=== PATIENT | female | born 2000 | race Two or more races ===

== ENCOUNTER 2023-04-26 17:31 | Inpatient (IN) | payer MEDICAID ==
[~2023-04-26] VITALS: Ht 160 cm; Wt 62.6 kg
[~2023-04-26 17:31] MED LIST: PREN-96 PO
[2023-04-26] MEDS ORDERED: DERMOPLAST 60ML BOTTLE TOP PRN (20:00)
[2023-04-26] MEDS ORDERED: WITCH HAZEL-GLYCERIN PAD TOP PRN (20:00)
[2023-04-26] MEDS ORDERED: BUTORPHANOL TARTRATE 2 MG/1 ML VIAL IV PRN ×2 (20:00)
[2023-04-26] MEDS ORDERED: LIDOCAINE 2%HCL (LOCAL ANESTH.) INJ 20ML MDV IJ PRN (20:00)
[2023-04-26] MEDS ORDERED: PROMETHAZINE HCL 25 MG/ML 1ML IV PRN (20:00)
[2023-04-26] MEDS ORDERED: PHISODERM TOP SOLN 240ML BTL TOP PRN (20:00)
[2023-04-26] MEDS ORDERED: LACT. RINGERS/OXYTOCIN 20UNITS 500 ML IV ONE ×2 (20:00→20:30)
[2023-04-26 21:01] LABS: Urine Epithelial Cast None Seen /hpf (<5)
[2023-04-26 21:09] LABS: Basophils # (auto) 0 10 ^3/uL (0-0.2); Basophils % (auto) 0.1 % (0.0-2.0); Eosinophils # (auto) 0 10 ^3/uL (0-0.8); Eosinophils % (auto) 0.3 % (0.0-7.0); Hematocrit 39.1 % (36.0-46.0); Hemoglobin 13.3 g/dL (12.2-16.2); Lymphocytes # (auto) 1.2 10 ^3/uL (0.4-5.4); Lymphocytes % (auto) 12.3 % (10.0-50.0); Mean Corpuscular Hemoglobin 31.1 pg (28.0-32.0); Mean Corpuscular Hgb Conc. 33.9 g/dL (32.0-36.0); Mean Corpuscular Volume 91.8 fL (80.0-100.0); Monocytes # (auto) 0.9 10 ^3/uL (0-1.3); Monocytes % (auto) 8.6 % (0.0-12.0); Neutrophils % (auto) 78.7 % (37.0-80.0); Nucleated Red Blood Cells % 0.1 %; Red Blood Cells 4.26 10^6/uL (4.0-5.20); Red Cell Distribution Width 13.2 % (11.8-14.3); White Blood Cell 10.1 10^3/uL (4.4-10.8)
[2023-04-26 21:15] LABS: Urine Bacteria NONE SEEN /hpf (None Seen); Urine Blood 1+ /uL (Negative); Urine Clarity HAZY (Clear); Urine Color Yellow (Yellow); Urine Mucus FEW (None Seen); Urine Protein, UAD TRACE (Negative); Urine Specific Gravity 1.018 (1.001-1.035); Urine Urobilinogen Normal (Negative); Urine WBC 60 /hpf (0 - 5); Urine pH 5.5 (5.0-8.0)
[2023-04-26 21:19] LABS: Amphetamine Screen, Urine Neg (NEGATIVE); Barbiturate Scree,Urine Neg (NEGATIVE); Benzodiazephine Screen, Urine Neg (NEGATIVE); Cocaine Screen, Urine Neg (NEGATIVE); Opiate Scree,Urine Neg (NEGATIVE); Phencyclidine Screen, Urine Neg (NEGATIVE)
[2023-04-26 21:20] LABS: Cannabinoid Screen, Urine Neg (NEGATIVE)
[2023-04-26 21:23] LABS: Alanine Aminotransferase 25 U/L (7-40); Albumin 3.9 g/dL (3.2-4.8); Alkaline Phosphatase 214 U/L (46-116); Anion Gap 9 (5-15); Aspartate Aminotransferase 24 U/L (13-40); BUN/Creatinine Ratio 10.9 (10.0-20.0); Bilirubin, Total 0.5 mg/dL (0.2-1.0); Blood Urea Nitrogen 5 mg/dL (9-23); Calcium 9.1 mg/dL (8.5-10.1); Carbon Dioxide 21 mmol/L (20-30); Chloride 108 mmol/L (98-107); Glucose 84 mg/dL (74-106); Potassium 3.6 mmol/L (3.5-5.1); Sodium 138 mmol/L (136-145); Total Protein 6.7 g/dL (5.7-8.2)
[2023-04-26 21:35] LABS: INR 0.95 (0.9-1.15); Partial Thromboplastin Time 26.7 SEC (24.5-34.5)
[2023-04-26] MEDS: LACTATED RINGER'S 1,000 ML IV SCH (22:12)
[2023-04-27] MEDS: LACTATED RINGER'S 1,000 ML IV SCH (03:54)
[2023-04-27] MEDS ORDERED: IBUPROFEN 600 MG TAB PO PRN (09:00)
[2023-04-27] MEDS ORDERED: ONDANSETRON ODT 4 MG TAB PO PRN (09:00)
[2023-04-27] MEDS ORDERED: ACETAMINOPHEN 325 MG TAB PO PRN (09:00)
[2023-04-27] MEDS ORDERED: METHYLERGONOVINE MALEATE 0.2 MG/ML AMP IM PRN (10:15)
[2023-04-27] MEDS ORDERED: LIDOCAINE 2%HCL (LOCAL ANESTH.) INJ 20ML MDV IJ PRN (10:15)
[2023-04-27 13:00] VITALS: RESP 16; O2SAT 98
[2023-04-27 15:00] VITALS: BP 105/66; PULSE 105; RESP 20; TEMP 99.2; O2SAT 98
[2023-04-27 19:00] VITALS: BP 116/68; PULSE 79; RESP 16; RESP 17; TEMP 98.3; O2SAT 98
[2023-04-27 23:00] VITALS: BP 112/72; PULSE 84; RESP 16; TEMP 98.6; O2SAT 98
[2023-04-28 03:00] VITALS: BP 108/70; PULSE 81; RESP 16; TEMP 98.4; O2SAT 97
[2023-04-28 07:00] VITALS: BP 108/68; PULSE 76; RESP 16; TEMP 98; O2SAT 97
[2023-04-30 19:06] LABS: Treponema pallidum Ab (FTA-Ab) Non Reactive (Non Reactive)
[2023-05-01 11:06] LABS: RPR Non Reactive (Non Reactive)
== END 2023-04-28 10:48 | disposition home or self-care (01) | DRG 560 ==
LOC: LDRP 17:31 → OBSVTOIN 19:54 → LDRP 22:44
PROVIDERS: ADMIT Obstetrics & Gynecology; ATTEND Obstetrics & Gynecology
PROC: 10E0XZZ Delivery of Products of Conception, External Approach (ICD-10-PCS; principal; 2023-04-27)
PROC: 10907ZC Drainage of Amniotic Fluid, Therapeutic from Products of Conception, Via Natural or Artificial Opening (ICD-10-PCS; 2023-04-27)
DX: O69.81X0 Labor and delivery complicated by cord around neck, without compression, not applicable or unspecified (principal); Z37.0 Single live birth; O71.82 Other specified trauma to perineum and vulva; Z3A.39 39 weeks gestation of pregnancy; O77.0 Labor and delivery complicated by meconium in amniotic fluid
CPT/HCPCS: 36415; 59025; 59409; 80053; 80307; 81001; 81002; 85025; 85610; 85730; 86592; 86850; 86900; 86901; 94760; 94762; 96360; 96361; G0378; J2590

== ENCOUNTER → 2024-05-04 | Outpatient (CLI) | payer MEDICAID ==
[2024-05-04 13:23] LABS: Alanine Aminotransferase 29 U/L (7-40); Alkaline Phosphatase 82 U/L (46-116); Anion Gap 9 (5-15); Aspartate Aminotransferase 17 U/L (13-40); BUN/Creatinine Ratio 16.1 (10.0-20.0); Bilirubin, Total 0.5 mg/dL (0.2-1.0); Calcium 9.9 mg/dL (8.7-10.4); Carbon Dioxide 25 mmol/L (20-31); Chloride 102 mmol/L (98-107); Glucose 88 mg/dL (74-106); Potassium 3.5 mmol/L (3.5-5.1)
[2024-05-04 13:24] LABS: Albumin 4.9 g/dL (3.2-4.8); Blood Urea Nitrogen 9 mg/dL (9-23); Sodium 136 mmol/L (136-145); Total Protein 7.9 g/dL (5.7-8.2)
[2024-05-05 06:06] LABS: Varicella Zoster IgG Antibody Reactive (Non Reactive)
[2024-05-05 07:06] LABS: RPR Non Reactive (Non Reactive)
[2024-05-05 22:06] LABS: Chlamydia Trachomatis, NAA Negative (Negative); Neisseria gonorrhoeae, NAA Negative (Negative)
[2024-05-07 05:07] LABS: QuantiFERON-TB Gold Plus Negative (Negative)
== END | disposition home or self-care (01) ==
LOC: LAB 12:02
DX: O23.43 Unspecified infection of urinary tract in pregnancy, third trimester (principal); N39.0 Urinary tract infection, site not specified; Z31.430 Encounter of female for testing for genetic disease carrier status for procreative management; Z3A.00 Weeks of gestation of pregnancy not specified; Z3A.39 39 weeks gestation of pregnancy
CPT/HCPCS: 36415; 80053; 83036; 84439; 84443; 86592; 86703; 86787; 86850; 86900; 86901; 87086; 87389; 87902

== ENCOUNTER → 2024-07-17 | Outpatient (CLI) | payer MEDICAID ==
[2024-07-17 12:15] LABS: Basophils # (auto) 0 10 ^3/uL (0-0.2); Basophils % (auto) 0.2 % (0.0-2.0); Eosinophils # (auto) 0.1 10 ^3/uL (0-0.8); Hematocrit 35.8 % (36.0-46.0); Hemoglobin 12.3 g/dL (12.2-16.2); Lymphocytes # (auto) 1.1 10 ^3/uL (0.4-5.4); Lymphocytes % (auto) 18.2 % (10.0-50.0); Mean Corpuscular Hemoglobin 31.5 pg (28.0-32.0); Mean Corpuscular Hgb Conc. 34.4 g/dL (32.0-36.0); Mean Corpuscular Volume 91.7 fL (80.0-100.0); Monocytes # (auto) 0.6 10 ^3/uL (0-1.3); Monocytes % (auto) 9.9 % (0.0-12.0); Neutrophils # (auto) 4.2 10 ^3/uL (1.6-8.6); Neutrophils % (auto) 70.7 % (37.0-80.0); Nucleated Red Blood Cells % 0.1 %; Platelet Count (auto) 227 10^3/uL (140-450); Red Cell Distribution Width 13.4 % (11.8-14.3); White Blood Cell 5.9 10^3/uL (4.4-10.8)
== END | disposition home or self-care (01) ==
LOC: LAB 11:58
DX: Z34.80 Encounter for supervision of other normal pregnancy, unspecified trimester (principal); Z3A.00 Weeks of gestation of pregnancy not specified
CPT/HCPCS: 36415; 84443; 85025; 86765

== ENCOUNTER 2024-09-29 14:09 | Observation (INO) | payer MEDICAID ==
[~2024-09-29] VITALS: Ht 160 cm; Wt 67.6 kg
--- NOTE | 2024-09-29 15:50 | DVH ---
BIOPHYSICAL PROFILE HISTORY: GDMA2, IUGR Comparison Study: None TECHNIQUE: Multiple real-time grayscale sonographic images through the gravid uterus of the fetus wi th duplex Doppler color flow and M-mode spectral analysis FINDINGS: BIOPHYSICAL PROFILE: breathing score: 2 movement score: 2 tone score: 2 Quantitative DEBBI score: 2 (DEBBI: 10.8 Cm.) Total score: 8 The cervix is not visualized Single live fetus in cephalic presentation. heart rate 128 beats per minute. Posterior, grade 2 placenta without previa or abruption IMPRESSION: Biophysical profile score: 8
[2024-09-29] MEDS ORDERED: METF-370 PO (16:23)
--- NOTE | 2024-09-29 16:36 | DVHDS2 ---
Physician Discharge Progress N Final Diagnosis: testing for GDM, A2 and IUGR Operations or Procedures: Operations or Procedures 24yo IUP@32.0wks VSS NST reactive FKC/PTL precautions reviewed Dr. Mark consulted, agrees with POC. Other Interventions Other Interventions [address] [address] Ph: [phone] DIAGNOSTIC IMAGING Diagnostic Imaging Report : [id number] Signed PATIENT: BABAK OVALLE ACCT: [id number] UNIT: [id number] : 2000 LOC: LD ROOM / BED: LD1 / A AGE / SEX: 24 / F ADM STATUS: ADM IN SERVICE 1420 ORDERING PHYSICIAN: PRASANNA GARG CNM PROCEDURE(s): BPP - BIOPHYSICAL PROFILE REASON: GDMA2, IUGR ORDER NUMBER(s): [id number], ACCESSION NUMBER(s): [id number] BIOPHYSICAL PROFILE HISTORY: GDMA2, IUGR Comparison Study: None TECHNIQUE: Multiple real-time grayscale sonographic images through the gravid uterus of the fetus with duplex Doppler color flow and M-mode spectral analysis FINDINGS: BIOPHYSICAL PROFILE: breathing score: 2 movement score: 2 tone score: 2 Quantitative DEBBI score: 2 (DEBBI: 10.8 Cm.) Total score: 8 The cervix is not visualized Single live fetus in cephalic presentation. heart rate 128 beats per minute. Posterior, grade 2 placenta without previa or abruption IMPRESSION: Biophysical profile score: 8 ATED BY: TEX FAUST MD DICTATED DATE/TIME: 09/29/24 1548 SIGNED BY: TEX FAUST MD SIGNED DATE/TIME: 09/29/24 1548 CC: Condition on Discharge: Stable Disposition: Home Discharge Instructions: Diet: Consistent carbohydrate Activity: No Restrictions, As Tolerated Follow Up/Referral: follow up twice weekly Medications: see med list Follow Up Care: Specialist: f/u twice weekly Discharge Statement: "Patient was advised to return to the ER or call 911 if any headaches, dizziness, shortness of breath, chest pain, abdominal pain, bleeding, fevers, or worsening of medical condition. Patient was counseled about treatment plan, medications, possible side effects, patientverbalized understanding. All questions were answered to the best of my ability. This discharge took greater then 30 minutes in planning, reviewing documentation, counseling the patient, and discussing with other team members." Visit Coding OBGYN Date of Service: Sep 29, 2024 Billing Provider: PRASANNA GARG CNM MARKETING RESEARCH INTERN Common Visit Codes: [id number] OBS CARE (HIGH) MARKETING RESEARCH INTERN Procedure Codes: 22800-82- NON-STRESS TEST PRSAANNA GARG CNM Sep 29, 2024 16:36
== END 2024-09-29 16:42 | disposition home or self-care (01) ==
LOC: LDRP 14:09
PROVIDERS: ADMIT Obstetrics & Gynecology; ATTEND Obstetrics & Gynecology
DX: O36.5930 Maternal care for other known or suspected poor fetal growth, third trimester, not applicable or unspecified (principal); O24.419 Gestational diabetes mellitus in pregnancy, unspecified control; Z3A.32 32 weeks gestation of pregnancy; Z98.890 Other specified postprocedural states; Z79.899 Other long term (current) drug therapy
CPT/HCPCS: 59025; 76819; 81002; 82948; 82962; 94760; G0378

== ENCOUNTER 2024-10-04 10:12 | Observation (INO) | payer MEDICAID ==
[~2024-10-04 10:12] MED LIST changes: +METF-370 PO
--- NOTE | 2024-10-04 10:54 | DVH ---
BIOPHYSICAL PROFILE HISTORY: GDMA2/IUGR TECHNIQUE: Multiple transabdominal real-time grayscale sonographic images through the gravid uterus of the fetus with duplex Doppler color flow and M-mode spectral analysis FINDINGS: BIOPHYSICAL PROFILE: breathing score: 2/2 movement score: 2/2 tone score: 2/2 Quantitative DEBBI score: 2/2 (DEBBI: 12.3 Cm.) Total score: 8/8 The cervix closed Single live fetus in cephalic presentation. heart rate 132 beats per minute. Grade 1 posterior placenta without previa or abruption IMPRESSION: 1. Biophysical profile score: 8/8 unchanged from previous exam done 09/29/2024
--- NOTE | 2024-10-04 21:36 | DVHDS2 ---
Physician Discharge Progress N Final Diagnosis: 32wks iugr,gdm Operations or Procedures: Operations or Procedures nst raective reviwed,sono Condition on Discharge: Good Disposition: Home Discharge Instructions: Diet: Consistent carbohydrate Activity: No Restrictions, As Tolerated Follow Up/Referral: as scheduled. Medications: na Follow Up Care: Specialist: 3d Discharge Statement: "Patient was advised to return to the ER or call 911 if any headaches, dizziness, shortness of breath, chest pain, abdominal pain, bleeding, fevers, or worsening of medical condition. Patient was counseled about treatment plan, medications, possible side effects, patientverbalized understanding. All questions were answered to the best of my ability. This discharge took greater then 30 minutes in planning, reviewing documentation, counseling the patient, and discussing with other team members." Visit Coding OBGYN Date of Service: Oct 03, 2024 Billing Provider: BRAYDEN GOMEZ DO PHARMACEUTICAL SALES Common Visit Codes: [id number] INP/OBS CARE (HIGH) PHARMACEUTICAL SALES Procedure Codes: 60611-35- NON-STRESS TEST BRAYDEN GOMEZ DO Oct 04, 2024 21:35
== END 2024-10-04 11:10 | disposition home or self-care (01) ==
LOC: LDRP 10:12
PROVIDERS: ADMIT Obstetrics & Gynecology; ATTEND Obstetrics & Gynecology
DX: O24.419 Gestational diabetes mellitus in pregnancy, unspecified control (principal); O36.5930 Maternal care for other known or suspected poor fetal growth, third trimester, not applicable or unspecified; Z98.890 Other specified postprocedural states; Z79.899 Other long term (current) drug therapy; Z3A.32 32 weeks gestation of pregnancy
CPT/HCPCS: 59025; 76819; 81002; 82948; 82962; 94760; G0378

== ENCOUNTER 2024-10-06 17:11 | Observation (INO) | payer MEDICAID ==
[2024-10-06] MEDS ORDERED: METF-370 PO (17:54)
--- NOTE | 2024-10-06 18:18 | DVH ---
BIOPHYSICAL PROFILE HISTORY: GDMA2, IUGR TECHNIQUE: Multiple real-time grayscale sonographic images through the gravid uterus of the fetus wi th duplex Doppler color flow. FINDINGS: BIOPHYSICAL PROFILE: breathing score: 2 movement score: 2 tone score: 2 Quantitative DEBBI score: 2 Total score: 8 out of 8 Live intrauterine with heart rate of 151 beats per minute. presentation is cep halic. Placenta posteriorly positioned. DEBBI 11.4 cm. IMPRESSION: Biophysical profile score: 8 out of 8
--- NOTE | 2024-10-06 22:57 | DVHDS2 ---
Physician Discharge Progress N Final Diagnosis: testing for GDM, A2 and IUGR Operations or Procedures: Operations or Procedures 24yo IUP@33.2wks VSS NST reactive FKC/PTL precautions reviewed Other Interventions Other Interventions [address] [address] Ph: [phone] DIAGNOSTIC IMAGING Diagnostic Imaging Report : [id number] Signed PATIENT: BABAK OVALLE ACCT: [id number] UNIT: [id number] : 2000 LOC: [facility] ROOM / BED: TRIAGE3 / A AGE / SEX: 24 / F ADM STATUS: ADM IN SERVICE 2277 ORDERING PHYSICIAN: PRASANNA GARG CNM PROCEDURE(s): BPP - BIOPHYSICAL PROFILE REASON: GDMA2, IUGR ORDER NUMBER(s): [id number], ACCESSION NUMBER(s): [id number] BIOPHYSICAL PROFILE HISTORY: GDMA2, IUGR TECHNIQUE: Multiple real-time grayscale sonographic images through the gravid uterus of the fetus with duplex Doppler color flow. FINDINGS: BIOPHYSICAL PROFILE: breathing score: 2 movement score: 2 tone score: 2 Quantitative DEBBI score: 2 Total score: 8 out of 8 Live intrauterine with heart rate of 151 beats per minute. presentation is cephalic. Placenta posteriorly positioned. DEBBI 11.4 cm. IMPRESSION: Biophysical profile score: 8 out of 8 ATED BY: ESTUARDO SINGH MD DICTATED DATE/TIME: 10/06/241815 SIGNED BY: ESTUARDO SINGH MD SIGNED DATE/TIME: 10/06/241815 CC: Condition on Discharge: Stable Disposition: Home Discharge Instructions: Diet: Regular Activity: No Restrictions, As Tolerated Follow Up/Referral: Please keep all scheduled OBGYN appointments Medications: Continue taking all prescribed medications as directed Follow Up Care: Specialist: f/u in 3 days Discharge Statement: "Patient was advised to return to the ER or call 911 if any headaches, dizziness, shortness of breath, chest pain, abdominal pain, bleeding, fevers, or worsening of medical condition. Patient was counseled about treatment plan, medications, possible side effects, patientverbalized understanding. All questions were answered to the best of my ability. This discharge took greater then 30 minutes in planning, reviewing documentation, counseling the patient, and discussing with other team members." Visit Coding OBGYN Date of Service: Oct 06, 2024 Billing Provider: PRASANNA GARG CNM PERSONAL VEHICLE ADVISOR Common Visit Codes: [id number] OBS CARE (HIGH) PERSONAL VEHICLE ADVISOR Procedure Codes: 02863-72- NON-STRESS TEST PRASANNA GARG CNM Oct 06, 2024 22:57
== END 2024-10-06 18:33 | disposition home or self-care (01) ==
LOC: LDRP 17:11
PROVIDERS: ADMIT Obstetrics & Gynecology; ATTEND Obstetrics & Gynecology
DX: O36.5930 Maternal care for other known or suspected poor fetal growth, third trimester, not applicable or unspecified (principal); O24.419 Gestational diabetes mellitus in pregnancy, unspecified control; Z98.890 Other specified postprocedural states; Z79.899 Other long term (current) drug therapy; Z3A.33 33 weeks gestation of pregnancy
CPT/HCPCS: 59025; 76819; 81002; 82962; 94760; G0378

== ENCOUNTER 2024-10-09 06:33 | Observation (INO) | payer MEDICAID ==
--- NOTE | 2024-10-09 09:54 | DVH ---
BIOPHYSICAL PROFILE HISTORY: GDMA2/IUGR Comparison Study: US BIOPHYSICAL PROFILE on DOS: 10/06/24, US BIOPHYSICAL PROFILE on DOS: 10/04/24, US B IOPHYSICAL PROFILE on DOS: 09/29/24 TECHNIQUE: Multiple real-time grayscale sonographic images through the gravid uterus of the fetus wi th duplex Doppler color flow and M-mode spectral analysis FINDINGS: BIOPHYSICAL PROFILE: breathing score: 2 movement score: 2 tone score: 2 Quantitative DEBBI score: 2 (DEBBI: 13.5 Cm.) Total score: 8 The cervix is not visualized Single live fetus in cephalic presentation. heart rate 136 beats per minute. Grade 1, posterior placenta without previa or abruption IMPRESSION: Biophysical profile score: 8
--- NOTE | 2024-10-09 14:57 | DVHDS2 ---
Physician Discharge Progress N Final Diagnosis: IUGR 33WKS Operations or Procedures: Operations or Procedures NST REACTIVE REVIWED,SONO Condition on Discharge: Good Disposition: Home Discharge Instructions: Diet: Consistent carbohydrate Activity: Light activity Medications: NA Follow Up Care: Specialist: 3D Discharge Statement: "Patient was advised to return to the ER or call 911 if any headaches, dizziness, shortness of breath, chest pain, abdominal pain, bleeding, fevers, or worsening of medical condition. Patient was counseled about treatment plan, medications, possible side effects, patientverbalized understanding. All questions were answered to the best of my ability. This discharge took greater then 30 minutes in planning, reviewing document ation, counseling the patient, and discussing with other team members." Visit Coding OBGYN Date of Service: Oct 09, 2024 Billing Provider: BRAYDEN GOMEZ DO BOSS DYER Common Visit Codes: [id number]-[id number] OBS CARE (HIGH) BOSS DYER Procedure Codes: 35876-55- NON-STRESS TEST BRAYDEN GOMEZ DO Oct 09, 2024 14:57
== END 2024-10-09 10:10 | disposition home or self-care (01) ==
LOC: LDRP 09:13
PROVIDERS: ADMIT Obstetrics & Gynecology; ATTEND Obstetrics & Gynecology
DX: O36.5930 Maternal care for other known or suspected poor fetal growth, third trimester, not applicable or unspecified (principal); Z3A.33 33 weeks gestation of pregnancy; Z79.899 Other long term (current) drug therapy; Z98.890 Other specified postprocedural states
CPT/HCPCS: 59025; 76819; 81002; 82948; 82962; 94760; G0378

== ENCOUNTER 2024-10-13 06:46 | Observation (INO) | payer MEDICAID ==
[~2024-10-13] VITALS: Ht 160 cm; Wt 68.0 kg
--- NOTE | 2024-10-13 20:21 | DVH ---
BIOPHYSICAL PROFILE HISTORY: GDMA2 and IUGR TECHNIQUE: Multiple transabdominal real-time grayscale sonographic images through the gravid uterus of the fetus with duplex Doppler color flow and M-mode spectral analysis FINDINGS: BIOPHYSICAL PROFILE: breathing score: 2 movement score: 2 tone score: 2 Quantitative DEBBI score: 2 (DEBBI: 11.7 Cm.) Total score: 8 The cervix is not well-visualized Single live fetus in cephalic presentation. heart rate 161 beats per minute. Posterior placenta without previa or abruption IMPRESSION: Biophysical profile score: 8
--- NOTE | 2024-10-13 22:36 | DVHDS2 ---
Physician Discharge Progress N Final Diagnosis: testing for IUGR and GDM, A2 Operations or Procedures: Operations or Procedures 24yo IUP@34.0wks VSS NST reactive FKC/PTL precautions reviewed Dr. Mark consulted, agrees with POC. Other Interventions Other Interventions [facility] [id number] [place] [id number] Ph: [phone] DIAGNOSTIC IMAGING Diagnostic Imaging Report : [id number] Signed PATIENT: BABAK OVALLE ACCT: [id number] UNIT: [id number] : 2000 LOC: [facility] ROOM / BED: TRIAGE1 / A AGE / SEX: 24 / F ADM STATUS: ADM IN SERVICE 24 ORDERING PHYSICIAN: PRASANNA GARG CNM PROCEDURE(s): BPP - BIOPHYSICAL PROFILE REASON: GDMA2 and IUGR ORDER NUMBER(s): [id number], ACCESSION NUMBER(s): [id number] BIOPHYSICAL PROFILE HISTORY: GDMA2 and IUGR TECHNIQUE: Multiple transabdominal real-time grayscale sonographic images through the gravid uterus of the fetus with duplex Doppler color flow and M-mode spectral analysis FINDINGS: BIOPHYSICAL PROFILE: breathing score: 2 movement score: 2 tone score: 2 Quantitative DEBBI score: 2 (DEBBI: 11.7 Cm.) Total score: 8 The cervix is not well-visualized Single live fetus in cephalic presentation. heart rate 161 beats per minute. Posterior placenta without previa or abruption IMPRESSION: Biophysical profile score: 8 ATED BY: YENIFER BERRIOS DO DICTATED DATE/TIME: 10/13/242017 SIGNED BY: YENIFER BERRIOS DO SIGNED DATE/TIME: 10/13/242017 CC: Condition on Discharge: Stable Disposition: Home Discharge Instructions: Diet: Consistent carbohydrate Activity: No Restrictions, As Tolerated Follow Up/Referral: [facility] have an [facility] on 10[facility]16/24 at [facility] Medications: Continue taking all prescribed medications as directed Follow Up Care: Specialist: f/u in 3 days Discharge Statement: "Patient was advised to return to the ER or call 911 if any headaches, dizziness, shortness of breath, chest pain, abdominal pain, bleeding, fevers, or worsening of medical condition. Patient was counseled about treatment plan, medications, possible side effects, patientverbalized understanding. All questions were answered to the best of my ability. This discharge took greater then 30 minutes in planning, reviewing documentation, counseling the patient, and discussing with other team members." Visit Coding OBGYN Date of Service: Oct 14, 2024 Billing Provider: PRASANNA GARG CNM NANOSYSTEMS ENGINEER Common Visit Codes: [id number] OBS CARE (HIGH) NANOSYSTEMS ENGINEER Procedure Codes: 68510-02- NON-STRESS TEST PRASANNA GARG CNM Oct 13, 2024 22:36
== END 2024-10-13 20:18 | disposition home or self-care (01) ==
LOC: LDRP 19:07
PROVIDERS: ADMIT Obstetrics & Gynecology; ATTEND Obstetrics & Gynecology
DX: O36.5930 Maternal care for other known or suspected poor fetal growth, third trimester, not applicable or unspecified (principal); O24.419 Gestational diabetes mellitus in pregnancy, unspecified control; Z3A.34 34 weeks gestation of pregnancy; Z79.899 Other long term (current) drug therapy; Z98.890 Other specified postprocedural states
CPT/HCPCS: 59025; 76819; 81002; 82948; 82962; 94760; G0378

== ENCOUNTER 2024-10-16 03:10 | Observation (INO) | payer MEDICAID ==
--- NOTE | 2024-10-16 20:08 | DVHDS2 ---
Physician Discharge Progress N Final Diagnosis: NST/BPP for GDM and IUGR. Operations or Procedures: Operations or Procedures HPI: 24yo IUP@34w3d presents for testing for GDM on metformin and IUGR. Denies LOF/VB/RAINES/vision changes/RUQ pain. Endorses +FM. Denies UCs, leaking fluid, or vaginal bleeding PNC: Routine PNC at [facility], adequate visits OB hx: x1 O: VS: BP: 111/64/ HR:65/SpO2: 96%/T:98.1 Blood glucose: 95 FHR tracing/NST: reactive. Baseline: 130 Variability: Moderate Accelerations: Present Decelerations: None Category: 1 UCs: None noted BPP: 11/13 A: 24yo IUP@34w3d testing Gestational Diabetes IUGR Category I EFM P: -Discharge home -Continue medication routine and diet for GDM. -Discussed labor precautions and kick counts. Patient verbalizes understanding -Follow-up on Friday 10/20 for repeat NST AI HECTOR CNM 10/16/24 @ 2004 Other Interventions Other Interventions BPP: 11/13 DEBBI: 11.8 Placenta: Posterior, no evidence of previa or abruption Condition on Discharge: Stable Disposition: Home Discharge Instructions: Diet: Consistent carbohydrate Diet comment: GDM diet Activity: No Restrictions, As Tolerated Follow Up/Referral: 10/20 at 1300 Medications: No change Follow Up Care: Specialist: f/u in 4 days for biweekly testing Discharge Statement: Patient was advised to return to the ER or call 911 if any headaches, dizziness, shortness of breath, chest pain, abdominal pain, bleeding, fevers, or worsening of medical condition. Patient was counseled about treatment plan, medications, possible side effects, patientverbalized understanding. All questions were answered to the best of my ability. This discharge took greater then 30 minutes in planning, reviewing documentation, counseling the patient, and discussing with other team members. Visit Coding OBGYN Date of Service: Oct 16, 2024 Billing Provider: AI HECTOR CNM MILLING MACHINE OPERATOR GEAR Common Visit Codes: 90497-[id number] OBS CARE (MOD) MILLING MACHINE OPERATOR GEAR Procedure Codes: 79869-80- NON-STRESS TEST AI HECTOR CNM Oct 16, 2024 20:08
--- NOTE | 2024-10-19 16:47 | DVH ---
BIOPHYSICAL PROFILE HISTORY: GDMA1 AND IUGR TECHNIQUE: Multiple real-time grayscale sonographic images through the gravid uterus of the fetus wi th duplex Doppler color flow. FINDINGS: BIOPHYSICAL PROFILE: breathing score: 2 movement score: 2 tone score: 2 Quantitative DEBBI score: 2 Total score: 8 out of 8 Single live intrauterine , cephalic lie. heart rate of 157 beats per minute. Placenta posterior, fundal position. DEBBI 11.8 cm. IMPRESSION: Biophysical profile score: 8 out of 8
== END 2024-10-16 20:03 | disposition home or self-care (01) ==
LOC: LDRP 18:20
PROVIDERS: ADMIT Obstetrics & Gynecology; ATTEND Obstetrics & Gynecology
DX: O36.5930 Maternal care for other known or suspected poor fetal growth, third trimester, not applicable or unspecified (principal); O24.419 Gestational diabetes mellitus in pregnancy, unspecified control; Z3A.34 34 weeks gestation of pregnancy; Z79.899 Other long term (current) drug therapy; Z98.890 Other specified postprocedural states
CPT/HCPCS: 59025; 76819; 81002; 82948; 82962; 94760; G0378

== ENCOUNTER 2024-10-20 13:28 | Observation (INO) | payer MEDICAID ==
--- NOTE | 2024-10-20 14:44 | DVH ---
BIOPHYSICAL PROFILE HISTORY: gdma2/iugr TECHNIQUE: Multiple transabdominal real-time grayscale sonographic images through the gravid uterus of the fetus with duplex Doppler color flow and M-mode spectral analysis FINDINGS: BIOPHYSICAL PROFILE: breathing score: 2 movement score: 2 tone score: 2 Quantitative DEBBI score: 2 (DEBBI: 8-9 Cm.) Total score: 8/8 The cervix measures Single live fetus in 35 weeks 0 days presentation. heart rate 132 beats per minute. Posterior fundal Grade 2 placenta without previa or abruption Single live fetus at 5 weeks 0 Biophysical profile score 8 8 corresponding to an PEYTON of 11/24/2024 IMPRESSION: 1. Biophysical profile score: /8
--- NOTE | 2024-10-20 20:19 | DVHDS2 ---
Physician Discharge Progress N Final Diagnosis: testing for GDM, A2 and IUGR Operations or Procedures: Operations or Procedures 24yo IUP@35+wks, +FM, denies UCs/VB VSS NST reactive BPP 11/13 FKC/PTL precautions reviewed Dr. Mark consulted, agrees with POC. Condition on Discharge: Stable Disposition: Home Discharge Instructions: Diet: Consistent carbohydrate Activity: No Restrictions, As Tolerated Medications: see med list Follow Up Care: Specialist: f/u in 3 days Discharge Statement: "Patient was advised to return to the ER or call 911 if any headaches, dizziness, shortness of breath, chest pain, abdominal pain, bleeding, fevers, or worsening of medical condition. Patient was counseled about treatment plan, medications, possible side effects, patientverbalized understanding. All questions were answered to the best of my ability. This discharge took greater then 30 minutes in planning, reviewing documentation, counseling the patient, and discussing with other team members." Visit Coding OBGYN Date of Service: Oct 20, 2024 Billing Provider: PRASANNA GARG CNM FIVE ROLL REFINER BATCH MIXER Common Visit Codes: [id number] OBS CARE (HIGH) FIVE ROLL REFINER BATCH MIXER Procedure Codes: 25295-83- NON-STRESS TEST PRASANNA GARG CNM Oct 20, 2024 20:19
== END 2024-10-20 15:32 | disposition home or self-care (01) ==
LOC: LDRP 13:28
PROVIDERS: ADMIT Obstetrics & Gynecology; ATTEND Obstetrics & Gynecology
DX: O24.419 Gestational diabetes mellitus in pregnancy, unspecified control (principal); O36.5930 Maternal care for other known or suspected poor fetal growth, third trimester, not applicable or unspecified; Z3A.35 35 weeks gestation of pregnancy; Z98.890 Other specified postprocedural states; Z79.899 Other long term (current) drug therapy
CPT/HCPCS: 59025; 76819; 81002; 82948; 82962; 94760; G0378

== ENCOUNTER 2024-10-23 06:39 | Observation (INO) | payer MEDICAID ==
[~2024-10-23] VITALS: Ht 160 cm; Wt 67.1 kg
--- NOTE | 2024-10-23 19:45 | DVH ---
ULTRASOUND BIOPHYSICAL PROFILE CLINICAL HISTORY: GDMA2 and IUGR COMPARISON: US BIOPHYSICAL PROFILE on DOS: 10/20/24 TECHNIQUE: Real-time grayscale, color flow and M-mode imaging of the gravid uterus is performed. FINDINGS: Single living intrauterine gestation. Cephalic presentation. heart rate 135 beats per minute. Placenta is fundal. No definite evidence of abruption or previa. Amniotic fluid index: 9.6 cm Biophysical profile: 8 out of 8. (2 breathing, 2 activity, 2 tone, 2 DEBBI) IMPRESSION: Biophysical profile scoring 8 out of 8.
--- NOTE | 2024-10-23 20:50 | DVHDS2 ---
Physician Discharge Progress N Final Diagnosis: testing for GDMA2 and IUGR Secondary Diagnosis: r/o labor Problems List: (1) uterine contractions Operations or Procedures: Operations or Procedures S: 24yo with IUP at 35w3d presents to place for surveillance due to GDMA2 and IUGR. She reports normal movements, occasional UCs that feel like lightning crotch, no leakage of fluid, vaginal bleeding, RAINES, vision changes or epigastric pain. Patient states she is in the middle of moving and has been extremely busy. She feels like she is constantly on her feet and never has time to drink water or rest. O: A&O x3 NAD. Afebrile, VSS Respiration: unlabored heart and lung sounds normal. Abdomen: Gravid, non-tender to palpation Extremities: No edema BPP: 8/8 NST reactive, with mild contractions every 6 minutes CL: 4cm SVE: closed, thick, high A: Normal BPP Reactive NST Closed cervix. Not in labor P: -IV hydrated with 1000mL LR and PO hydrated with 1000 mL water -Continue surveillance 2x/week and continue appointments as previously scheduled -3rd trimester emergency S&S FMC, PTL & pre-eclampsia precautions reviewed with pt; advised to seek health care if any *Consulted and Co-managed with Dr Mark Other Interventions Other Interventions ULTRASOUND BIOPHYSICAL PROFILE CLINICAL HISTORY: GDMA2 and IUGR COMPARISON: US BIOPHYSICAL PROFILE on DOS: 10/20/24 TECHNIQUE: Real-time grayscale, color flow and M-mode imaging of the gravid uterus is performed. FINDINGS: Single living intrauterine gestation. Cephalic presentation. heart rate 135 beats per minute. Placenta is fundal. No definite evidence of abruption or previa. Amniotic fluid index: 9.6 cm Biophysical profile: 8 out of 8. (2 breathing, 2 activity, 2 tone, 2 DEBBI) IMPRESSION: Biophysical profile scoring 8 out of 8. ASOUND CERVICAL LENGTH preliminary report shows closed cervix and 4cm cervical length Condition on Discharge: Good Disposition: Home Discharge Instructions: Diet: Consistent carbohydrate Activity: Light activity Follow Up/Referral: Biweekly NSTs as previously scheduled. appointment with Dr Mark on 10/30 Medications: No change. See medication list Follow Up Care: Discharge Statement: -Discussed labor precautions and kick counts. Answered all patient questions and concerns. -Patient was advised to return to the ER or call 911 if any headaches, dizziness, shortness of breath, chest pain, abdominal pain, bleeding, fevers, or worsening of medical condition. -Patient was counseled about treatment plan, medications, possible side effects, patientverbalized understanding. All questions were answered to the best of my ability. -This discharge took greater then 30 minutes in planning, reviewing documentation, counseling the patient, and discussing with other team members. Visit Coding OBGYN Date of Service: Oct 23, 2024 Billing Provider: AI HECTOR CNM FIBER OPTIC CENTRAL OFFICE INSTALLER Common Visit Codes: [id number] INP/OBS CARE (HIGH) FIBER OPTIC CENTRAL OFFICE INSTALLER Procedure Codes: 94917-20- NON-STRESS TEST AI HECTOR CNM Oct 23, 2024 20:50
--- NOTE | 2024-10-24 05:19 | DVH ---
OB ULTRASOUND <14 WEEKS: HISTORY: Labor R/O TECHNIQUE: Multiple real-time grayscale sonographic images of the pelvis with duplex Doppler color f low, spectral and M-mode analysis. TRANSDUCERS: COMPARISON: US OBSTERICAL LIMITED on DOS: 04/21/23 FINDINGS: 35 week 3 day gestation by dates in cephalic presentation with fundal placenta and no evidence of pre via or abruption. heart tones documented at 142 beats per minute. Current DEBBI is 9.6 cm compared with most recent DEBBI on 10/20 of 9.0 cm. Cervix is closed, measuring 4.0 cm. IMPRESSION: 1. 35 week 3 day gestation by dates with positive heart tones and adequate DEBBI. No evidence of previa or abruption. Cervix appears closed at 4 cm.
== END 2024-10-23 20:55 | disposition home or self-care (01) ==
LOC: LDRP 19:04
PROVIDERS: ADMIT Obstetrics & Gynecology; ATTEND Obstetrics & Gynecology
DX: O60.03 Preterm labor without delivery, third trimester (principal); O36.5930 Maternal care for other known or suspected poor fetal growth, third trimester, not applicable or unspecified; O24.419 Gestational diabetes mellitus in pregnancy, unspecified control; Z3A.35 35 weeks gestation of pregnancy; Z79.899 Other long term (current) drug therapy; Z98.890 Other specified postprocedural states
CPT/HCPCS: 59025; 76815; 76819; 81002; 82948; 82962; 94760; 96360; G0378; 96365

== ENCOUNTER 2024-10-27 07:43 | Observation (INO) | payer MEDICAID ==
--- NOTE | 2024-10-27 16:03 | DVH ---
BIOPHYSICAL PROFILE HISTORY: GDMA2 and IUGR TECHNIQUE: Multiple transabdominal real-time grayscale sonographic images through the gravid uterus of the fetus with duplex Doppler color flow and M-mode spectral analysis FINDINGS: BIOPHYSICAL PROFILE: breathing score: 2 movement score: 1.99 tone score: 1.94 Quantitative DEBBI score: 8.52 (DEBBI: 9 Cm.) Total score: 8 The cervix was not seen Single live fetus in cephalic presentation. heart rate 138.94 beats per minute. Grade I fundal placenta without previa or abruption IMPRESSION: Biophysical profile score: 8/8
--- NOTE | 2024-10-27 17:35 | DVHDS2 ---
Physician Discharge Progress N Final Diagnosis: testing for GDM, A2 and IUGR Operations or Procedures: Operations or Procedures 24yo IUP@36wks VSS NST reactive FKC/PTL precautions reviewed Dr. Mark consulted, agrees with POC. Other Interventions Other Interventions [address] [address] Ph: [phone] DIAGNOSTIC IMAGING Diagnostic Imaging Report : [id number] Signed PATIENT: BABAK OVALLE ACCT: [id number] UNIT: [id number] : 2000 LOC: LD ROOM / BED: TRIAGE3 / A AGE / SEX: 24 / F ADM STATUS: ADM IN SERVICE [id number] ORDERING PHYSICIAN: PRASANNA GARG CNM PROCEDURE(s): BPP - BIOPHYSICAL PROFILE REASON: GDMA2 and IUGR ORDER NUMBER(s): [id number], ACCESSION NUMBER(s): [id number] BIOPHYSICAL PROFILE HISTORY: GDMA2 and IUGR TECHNIQUE: Multiple transabdominal real-time grayscale sonographic images through the gravid uterus of the fetus with duplex Doppler color flow and M-mode spectral analysis FINDINGS: BIOPHYSICAL PROFILE: breathing score: 2 movement score: 1.99 tone score: 1.94 Quantitative DEBBI score: 8.52 (DEBBI: 9 Cm.) Total score: 8 The cervix was not seen Single live fetus in cephalic presentation. heart rate 138.94 beats per minute. Grade I fundal placenta without previa or abruption IMPRESSION: Biophysical profile score: 8/8 ATED BY: DAVE ALEXANDER MD DICTATED DATE/TIME: 10/27/24 1601 SIGNED BY: DAVE ALEXANDER MD SIGNED DATE/TIME: 10/27/24 1601 CC: Condition on Discharge: Stable Disposition: Home Discharge Instructions: Diet: Consistent carbohydrate Activity: No Restrictions, As Tolerated Medications: see med list Follow Up Care: Specialist: f/u in 3 days Discharge Statement: "Patient was advised to return to the ER or call 911 if any headaches, dizziness, shortness of breath, chest pain, abdominal pain, bleeding, fevers, or worsening of medical condition. Patient was counseled about treatment plan, medications, possible side effects, patientverbalized understanding. All questions were answered to the best of my ability. This discharge took greater then 30 minutes in planning, reviewing documentation, counseling the patient, and discussing with other team members." Visit Coding OBGYN Date of Service: Oct 27, 2024 Billing Provider: PRASANNA GARG CNM CARE SUPPORT REPRESENTATIVE Common Visit Codes: 28780-[id number] OBS CARE (HIGH) CARE SUPPORT REPRESENTATIVE Procedure Codes: 20633-45- NON-STRESS TEST PRASANNA GARG CNM Oct 27, 2024 17:35
== END 2024-10-27 16:40 | disposition home or self-care (01) ==
LOC: LDRP 15:08 → UNDOADMOB 15:08 → LDRP 15:16
PROVIDERS: ADMIT Obstetrics & Gynecology; ATTEND Obstetrics & Gynecology
DX: O24.419 Gestational diabetes mellitus in pregnancy, unspecified control (principal); O36.5930 Maternal care for other known or suspected poor fetal growth, third trimester, not applicable or unspecified; Z3A.36 36 weeks gestation of pregnancy; Z98.890 Other specified postprocedural states; Z79.899 Other long term (current) drug therapy
CPT/HCPCS: 59025; 76819; 81002; 82948; 94760; G0378

== ENCOUNTER 2024-10-30 05:39 | Inpatient (IN) | payer MEDICAID ==
[~2024-10-30] VITALS: Ht 160 cm; Wt 72.6 kg
--- NOTE | 2024-10-30 10:30 | DVH ---
BIOPHYSICAL PROFILE HISTORY: IUGR Comparison Study: US BIOPHYSICAL PROFILE on DOS: 10/27/24, US BIOPHYSICAL PROFILE on DOS: 10/23/24, US BIOPHYSICAL PROFILE on DOS: 10/20/24, US BIOPHYSICAL PROFILE on DOS: 10/16/24, US BIOPHYSICAL PROFILE o n DOS: 10/13/24 TECHNIQUE: Multiple real-time grayscale sonographic images through the gravid uterus of the fetus wi th duplex Doppler color flow and M-mode spectral analysis FINDINGS: BIOPHYSICAL PROFILE: breathing score: 2 movement score: 2 tone score: 2 Quantitative DEBBI score: 2 (DEBBI: 6.5 Cm.) Total score: 8 The cervix measures 3.1 cm Single live fetus in cephalic presentation. heart rate 132 beats per minute. Fundal placenta without previa or abruption IMPRESSION: Biophysical profile score: 8
[2024-10-30] MEDS ORDERED: LIDOCAINE 2%HCL (LOCAL ANESTH.) INJ 20ML MDV IJ PRN (12:30)
[2024-10-30] MEDS ORDERED: BUTORPHANOL TARTRATE 2 MG/1 ML VIAL IV PRN ×2 (12:30)
--- NOTE | 2024-10-30 12:32 | DVHHP2 ---
OB CC & HPI Date Date of Admission: Oct 30, 2024 Patient Identification: : 2 Para: 1 EDC: Nov 24, 2024 EGA: 36WKS Chief Complaints: Reason for admission: active labor Admission Nurse Assessment Rev: No History of Present Complaints PT IS ADMITTED FOR LABOR,NO ROM SHE WENT FROM 1 CM TO 6 CM Past Medical History Cardiac: No pertinent Hx Pulmonary: No pertinent Hx Central Nervous System: No pertinent Hx GI: No pertinent Hx Hemotology/Oncology: No pertinent Hx Hepatobiliary: No pertinent Hx Psychiatric: No pertinent Hx Musculoskeletal: No pertinent Hx Rheumotologic: No pertinent Hx Infectious Disease: No peritnent Hx ENT: No pertinent Hx Renal/: No pertinent Hx Endocrine: No pertinent Hx Dermatology: No pertinent Hx Past Surgical History: No pertinent Hx OB History OB History Care: Good Care Ultrasounds: Normal mid trimester US Obstetrical Complications: None Medical Complications: None Allergies: Coded Allergies: NO KNOWN ALLERGIES (Unverified , 04/26/23) Home Meds Reported Medications Metformin Hydrochloride (Metformin Hcl) 500 Mg Tab, 1000 MG PO DAILY for 30 Days, MG 10/06/24 Vit W/ Ferrous Fumara ( One Daily) Daily Tab, 1 TAB PO DAILY, #90 TAB 3 Refills 04/21/23 Current Medications Current Medications Medications (Trade) Dose Ordered Sig/Bernard Route PRN Reason Start Time Stop Time Status Last Admin Lactated Ringer's 1,000 ml @ 125 mls/hr Q8H IV 10/30/24 12:30 UNV Penicillin G Potassium [id number] units/Dextrose 50 ml @ 100 mls/hr Q4H IV 10/30/24 16:30 UNV Joe Vanesa (Tucks) 1 pad PRN PRN TOP PERINEAL AREA DISCOMFORT 10/30/24 12:30 UNV Sodium Lauryl Sulfate (Phisoderm) 240 ml PRN PRN TOP PERINEAL AREA DISCOMFORT 10/30/24 12:30 UNV Benzocaine (Dermoplast) 1 applic PRN PRN TOP PERINEAL AREA DISCOMFORT 10/30/24 12:30 UNV Butorphanol Tartrate (Stadol Injection) 1 mg Q4HPRN PRN IV MODERATE PAIN (4-6 PAIN SCALE) 10/30/24 12:30 UNV Butorphanol Tartrate (Stadol Injection) 2 mg Q4HPRN PRN IV SEVERE PAIN (7-10 PAIN SCALE) 10/30/24 12:30 UNV Lidocaine HCl (Xylocaine) 20 ml ONCE PRN IJ PERINEAL AREA DISCOMFORT 10/30/24 12:30 UNV Family & Social History Family/Social History Blood Type: Unknown Rubella: unknown RPR/VDRL: Negative GBS Status: Unknown HBsAG: Negative Review of Systems Constitutional: No symptom reported Ears, Nose, & Throat: No symptom reported Eyes: No symptom reported Pulmonary/Respiratory: No symptom reported Cardiovascular: No symptom reported Gastrointestinal: No symptom reported Genitourinary: No symptom reported Musculoskeletal: No symptom reported Skin: No symptom reported Psychiatric: No symptom reported Endocrine: No symptom reported Hemotologic/Lymphatic: No symptom reported OB Admission Exam Physical Exam HEENT: TMs Normal, Fontanelles Normal, Nasal Mucosa Normal, Eyes non-injected, Oropharynx Normal, PERRLA, Moist Membranes, EOMI Heart: Rhythm Normal Lungs: Clear Abdomen: Non tender Extremities: Normal Reflexes: Normal Cervical Dilatation: 6cm Effacement: 75% Station: 0 Membranes: Intact Heart Rate: 130's Accelerations: Accelerations Present Decelerations: No Decelerations Short Term Variability: Present Hand Plug Shaper Variability: Average (6-25) Contractions on Admission: < 5 Minutes Apart Intensity: Moderate OB Plan Plan Admitting Diagnosis: ACTIVE Labor IUP AT 36 +WKS Plan: Expectant Management Other Plan: INFORMED CONSENT OBTAINED Visit Coding OBGYN Date of Service: Oct 30, 2024 Billing Provider: BRAYDEN GOMEZ DO SHEET METAL WELDER Common Visit Codes: [id number] OBS CARE (HIGH) SHEET METAL WELDER Procedure Codes: 39318-68- NON-STRESS TEST BRAYDEN GOMEZ DO Oct 30, 2024 12:32
[2024-10-30] MEDS: PENICILLIN G POT 5MIL/D5 50ML 50 ML IV ONE (12:42)
[2024-10-30] MEDS ORDERED: CARBOPROST TROMETHAMINE 250 MCG/1ML VIAL IM PRN (13:00)
[2024-10-30 13:33] LABS: Hematocrit 41.9 % (36.0-46.0); Hemoglobin 14.3 g/dL (12.2-16.2); Mean Corpuscular Hemoglobin 31.6 pg (28.0-32.0); Mean Corpuscular Volume 92.4 fL (80.0-100.0); Nucleated Red Blood Cells % 0.0 %
[2024-10-30 13:52] LABS: Alanine Aminotransferase 25 U/L (7-40); Albumin 4.0 g/dL (3.2-4.8); Anion Gap 12 (5-15); BUN/Creatinine Ratio 15.9 (10.0-20.0); Bilirubin, Total 0.6 mg/dL (0.2-1.0); Blood Urea Nitrogen 10 mg/dL (9-23); Calcium 9.4 mg/dL (8.7-10.4); Carbon Dioxide 23 mmol/L (20-31); Chloride 104 mmol/L (98-107); Potassium 3.6 mmol/L (3.5-5.1); Sodium 139 mmol/L (136-145); Total Protein 6.5 g/dL (5.7-8.2)
[2024-10-30 13:55] LABS: Alkaline Phosphatase 185 U/L (46-116); Glucose 112 mg/dL (74-106)
[2024-10-30 13:57] LABS: INR 0.96 (0.9-1.15); Partial Thromboplastin Time 26.6 SEC (24.5-34.5); Prothrombin Time 10.2 sec (9.3-11.8)
[2024-10-30 14:05] LABS: Urine Protein, UAD Negative (Negative)
[2024-10-30 14:17] LABS: Amphetamine Screen, Urine Neg (NEGATIVE); Barbiturate Scree,Urine Neg (NEGATIVE); Benzodiazephine Screen, Urine Neg (NEGATIVE); Cannabinoid Screen, Urine Neg (NEGATIVE); Cocaine Screen, Urine Neg (NEGATIVE); Opiate Scree,Urine Neg (NEGATIVE); Phencyclidine Screen, Urine Neg (NEGATIVE)
[2024-10-30] MEDS: LACTATED RINGER'S 1,000 ML IV SCH (15:03)
--- NOTE | 2024-10-30 16:02 | DVHPN2 ---
Chief Complaints Patient reports: No new complaints Nursing reports: No new complaints Objective Medications Current Medications Medications (Trade) Dose Ordered Sig/Bernard Route PRN Reason Start Time Stop Time Status Last Admin Benzocaine (Dermoplast) 1 applic PRN PRN TOP PERINEAL AREA DISCOMFORT 10/30/24 12:30 Butorphanol Tartrate (Stadol Injection) 1 mg Q4HPRN PRN IV MODERATE PAIN (4-6 PAIN SCALE) 10/30/24 12:30 Butorphanol Tartrate (Stadol Injection) 2 mg Q4HPRN PRN IV SEVERE PAIN (7-10 PAIN SCALE) 10/30/24 12:30 Diphenoxylate HCl/ Atropine (Lomotil Tablet) 5 mg Q12HR PO 10/30/24 22:00 Lactated Ringer's 1,000 ml @ 125 mls/hr Q8H IV 10/30/24 12:30 10/30/24 15:03 Lidocaine HCl (Xylocaine) 20 ml ONCE PRN IJ PERINEAL AREA DISCOMFORT 10/30/24 12:30 Methylergonovine Maleate (Methergine) 0.2 mg Q8HP PRN IM POST HEMORRHAGE 10/30/24 13:00 11/01/24 12:59 Misoprostol (Cytotec) 200 mcg ONCE PRN SL BLEED/HEMORRHAGE 10/30/24 13:00 Misoprostol (Cytotec) 600 mcg ONCE PRN LA BLEED/HEMORRHAGE 10/30/24 13:00 Penicillin G Potassium [id number] units/Dextrose 50 ml @ 100 mls/hr Q4H IV 10/30/24 16:30 Sodium Lauryl Sulfate (Phisoderm) 240 ml PRN PRN TOP PERINEAL AREA DISCOMFORT 10/30/24 12:30 Witch Vanesa (Tucks) 1 pad PRN PRN TOP PERINEAL AREA DISCOMFORT 10/30/24 12:30 Others ve-8-9cm/90/+1 Studies Laboratory Tests 10/30/24 12:42 Test 10/30/24 12:42 Range/Units Serum Glucose 112 H 74-106 mg/dL Ass/Plan Assessment lactive labor gdma2 Plan arom clear fld cont with current care Visit Coding OBGYN Date of Service: Oct 30, 2024 Billing Provider: BRAYDEN GOMEZ DO ADVERTISING PROJECT MANAGER Common Visit Codes: [id number] INP/OBS CARE (HIGH) ADVERTISING PROJECT MANAGER Procedure Codes: 64174-15- NON-STRESS TEST BRAYDEN GOMEZ DO Oct 30, 2024 16:02
[2024-10-30] MEDS: PENICILLIN G POTASSIUM 2,500,000 UNITS in D5W 5% 50 ML IV SCH (16:16)
--- NOTE | 2024-10-30 16:58 | LDN2 ---
Labor and Delivery Note Date 10/30/24 Age 24 2 Para 2 EDC 8-19 EGA 36wks Diagnosis gdma2,ptl Vaginal Delivery: VTX Vacuum Assisted: No Placenta: Spontaneous Sex: Male Apgars 9=9 Nuchal Cord Transected: No Amniotic Fluid: Clear Anesthesia na Episiotomy: No Extension: No Labs Laboratory Tests 10/30/24 12:42: Hepatitis B Surface Antigen Negative, Rubella Antibody Positive 05/04/24 12:33: HIV (1&2) Antibody Negative Blood Bank 10/30/24 12:42: Blood Type A NEGATIVE Complications none Conditions stable Comments/Significant Med Kristin spec exam no cxal lac Visit Coding OBGYN Date of Service: Oct 30, 2024 Billing Provider: BRAYDEN GOMEZ DO ADMINISTRATIVE RESOURCES ASSOCIATE Common Visit Codes: 25765-[id number] OBS CARE (HIGH) ADMINISTRATIVE RESOURCES ASSOCIATE Procedure Codes: 60606-TFV DELIVERY ONLY BRAYDEN GOMEZ DO Oct 30, 2024 16:58
[2024-10-30] MEDS: PHISODERM TOP SOLN 240ML BTL TOP PRN (17:01)
[2024-10-30] MEDS: WITCH HAZEL-GLYCERIN PAD TOP PRN (17:01)
[2024-10-30] MEDS: DERMOPLAST 60ML BOTTLE TOP PRN (17:01)
[2024-10-30] MEDS: METHYLERGONOVINE MALEATE 0.2 MG/ML AMP IM PRN (17:02)
[2024-10-30] MEDS: LACT. RINGERS/OXYTOCIN 20UNITS 500 ML IV ONE ×2 (17:03→17:05)
[2024-10-30] MEDS ORDERED: ACETAMINOPHEN 325 MG TAB PO PRN (17:15)
[2024-10-30] MEDS ORDERED: IBUPROFEN 600 MG TAB PO PRN ×2 (17:15→19:00)
[2024-10-30] MEDS: ACETAMINOPHEN 325 MG TAB PO PRN (21:22)
--- NOTE | 2024-10-30 21:36 | DVHPN2 ---
Progress Note Date Seen: Oct 30, 2024 Subjective S: S/P Late vaginal delivery Perineal intact Fundus firm @ -1 umbilicus, midline,lochia rubra with scant bleeding noted Reports mild cramping tolerating regular diet ambulating without assistance well and taking in feeding cues vital signs Vital Sign Date Time Temp Pulse Resp B/P (MAP) Pulse Ox O2 Delivery O2 Flow Rate FiO2 10/30/24 21:22 98.7 medications Current Medications Medications Dose Ordered Sig/Bernard Route Start Time Stop Time Status Last Admin Dose Admin Lactated Ringer's 1,000 ml @ 125 mls/hr Q8H IV 10/30/24 12:30 10/30/24 15:03 125 MLS/HR Witch Vanesa 1 pad PRN PRN TOP 10/30/24 12:30 10/30/24 17:01 1 PAD Sodium Lauryl Sulfate 240 ml PRN PRN TOP 10/30/24 12:30 10/30/24 17:01 240 ML Benzocaine 1 applic PRN PRN TOP 10/30/24 12:30 10/30/24 17:01 1 APPLIC Lidocaine HCl 20 ml ONCE PRN IJ 10/30/24 12:30 Methylergonovine Maleate 0.2 mg Q8HP PRN IM 10/30/24 13:00 11/01/24 12:59 10/30/24 17:02 0.2 MG Misoprostol 200 mcg ONCE PRN SL 10/30/24 13:00 Misoprostol 600 mcg ONCE PRN WI 10/30/24 13:00 Diphenoxylate HCl/ Atropine 5 mg Q12HR PO 10/30/24 22:00 Ibuprofen 600 mg Q6HP PRN PO 10/30/24 19:00 Acetaminophen 650 mg Q4HP PRN PO 10/30/24 19:00 10/30/24 21:22 650 MG laboratory and microbiology Laboratory Tests 10/30/24 12:42 Test 10/30/24 12:42 Range/Units Serum Glucose 112 H 74-106 mg/dL Objective O: AFVSS Chest: heart and lung sounds normal. Abd soft, non-tender, fundus firm, BS, no rebound or guarding, Incision - dressing and incision clean, dry, intact Ext Neg Homans, Non-tender, edema Lochia - minimal Labs Problems(with codes): (1) Short interval between pregnancies affecting in third trimester, antepartum (2) delivery (maternal condition) (3) Mother's group B Streptococcus colonization status unknown Assessment/Plan yo ppd#1 s/p / doing well. Rh status A- Rh Status O- Breast Rubella Immune Pain control with PO medications Bowel regimen Discharge plan: [24 hours in stable condition 1645 10/31 ] Plan discussed with: Patient Visit Coding OBGYN Date of Service: Oct 30, 2024 Billing Provider: BRAYDEN GOMEZ DO SENIOR COST ANALYST Common Visit Codes: [id number] OBS CARE (MOD) DIALLO CHOWDHURY CNMJul 2024 21:36
[2024-10-30] MEDS ORDERED: DIPHENOXYLATE W/ATROPINE 2.5 MG TAB PO SCH (22:00)
[2024-10-30 23:00] VITALS: BP 97/57; PULSE 72; RESP 16; TEMP 98.7; O2SAT 96
[2024-10-31 03:00] VITALS: BP 102/62; PULSE 68; RESP 15; RESP 16; TEMP 98; O2SAT 97
[2024-10-31 06:52] VITALS: BP 100/56; PULSE 75; RESP 16; TEMP 98.1; O2SAT 97
--- NOTE | 2024-10-31 08:40 | DVHDS2 ---
Physician Discharge Progress N Final Diagnosis: Late labor 36+ weeks with delivery, uncomplicated Operations or Procedures: Operations or Procedures Condition on Discharge: Stable Disposition: Home Discharge Instructions: Diet: Regular Activity: Light activity Activity comment: Pelvic rest x 6 weeks Follow Up/Referral: 2- 3 wk w/ Dr Mark Medications: Ibuprofen PRN Follow Up Care: Discharge Statement: "Patient was advised to return to the ER or call 911 if any headaches, dizziness, shortness of breath, chest pain, abdominal pain, bleeding, fevers, or worsening of medical condition. Patient was counseled about treatment plan, medications, possible side effects, patientverbalized understanding. All questions were answered to the best of my ability. This discharge took greater then 30 minutes in planning, reviewing documentation, counseling the patient, and discussing with other team members." Visit Coding OBGYN Date of Service: Oct 31, 2024 Billing Provider: DINO MAGANA DO LAY OUT MACHINE OPERATOR Common Visit Codes: 11876-SWJ/OBS DISCH DAY <30MIN DINO MAGANA DO Oct 31, 2024 08:40
[2024-10-31] MEDS ORDERED: IBU600T PO (08:41)
[2024-10-31 11:15] VITALS: BP 102/64; PULSE 68; RESP 15; TEMP 98.6; O2SAT 97
[2024-10-31 15:00] VITALS: BP 111/76; PULSE 79; RESP 16; TEMP 98.1; O2SAT 97
[2024-10-31 19:00] VITALS: BP 105/69; PULSE 78; RESP 16; TEMP 98.5; O2SAT 97
[2024-10-31 23:30] VITALS: BP 105/67; PULSE 68; RESP 17; TEMP 98.4; O2SAT 97
== END 2024-11-01 09:00 | disposition home or self-care (01) | DRG 560 ==
LOC: LDRP 09:16 → OBSVTOIN 12:15 → LDRP 12:20
PROVIDERS: ADMIT Obstetrics & Gynecology; ATTEND Obstetrics & Gynecology
PROC: 10E0XZZ Delivery of Products of Conception, External Approach (ICD-10-PCS; principal; 2024-10-30)
DX: O24.425 Gestational diabetes mellitus in childbirth, controlled by oral hypoglycemic drugs (principal); Z37.0 Single live birth; O60.14X0 Preterm labor third trimester with preterm delivery third trimester, not applicable or unspecified; Z3A.36 36 weeks gestation of pregnancy; O09.893 Supervision of other high risk pregnancies, third trimester
CPT/HCPCS: 36415; 59409; 76819; 80053; 80307; 81001; 81002; 82962; 85025; 85610; 85730; 86762; 86780; 86803; 86850; 86870; 86900; 86901; 87340; 94760; 96360; 96361; 96365; 96366; G0378; J2540; J2590; J7060